=== PATIENT | female | born 1945 | race Caucasian/White ===

== ENCOUNTER 2017-08-22 09:55 | Emergency (ER) | payer MEDICARE, BC ==
[2017-08-22 10:12] VITALS: BP 152/110
--- NOTE | 2017-08-22 10:53 | EDM.PDOC ---
ED HPI GENERAL MEDICAL PROBLEM - General Chief Complaint: Genitourinary Problem Stated Complaint: UTI?? Time Seen by Provider: 08/22/17 10:30 Source of Information: Reports: Patient History Limitations: Reports: No Limitations - History of Present Illness INITIAL COMMENTS - FREE TEXT/NARRATIVE: 72-year-old female who has been treated for a UTI twice in the last month, recently finished nitrofurantoin 3 days ago and was asymptomatic until this morning when she woke up she was having dysuria. No fevers or chills, no back pain. Onset: Other (Symptoms developed overnight) Severity: Mild Worsens with: Reports: Other (Symptoms occur with urination) - Related Data Allergies Allergy/AdvReac Type Severity Reaction Status Date / Time No Known Allergies Allergy Verified 08/22/17 10:22 Home Meds: Home Meds Lisinopril 40 mg PO DAILY 08/22/17 [History] Metoprolol Succinate [Toprol XL] 50 mg PO DAILY 08/22/17 [History] Warfarin [Coumadin] 1 mg PO ASDIRECTED 08/22/17 [History] amLODIPine [Norvasc] 2.5 mg PO DAILY 08/22/17 [History] atorvaSTATin [Lipitor] 20 mg PO BEDTIME 08/22/17 [History] Past Medical History HEENT History: Reports: Impaired Vision Cardiovascular History: Reports: Afib, High Cholesterol - Past Surgical History GI Surgical History: Reports: Hernia, Abdominal Female Surgical History: Reports: Section Social & Family History - Tobacco Use Smoking Status *Q: Never Smoker - Recreational Drug Use Recreational Drug Use: No ED ROS GENERAL - Review of Systems Review Of Systems: See Below Constitutional: Denies: Fever, Chills Respiratory: Denies: Shortness of Breath Cardiovascular: Denies: Chest Pain GI/Abdominal: Denies: Abdominal Pain, Nausea, Vomiting : Reports: Dysuria, Frequency Musculoskeletal: Denies: Back Pain Skin: Reports: No Symptoms ED EXAM, RENAL/ - Physical Exam Exam: See Below Exam Limited By: No Limitations General Appearance: Alert, No Apparent Distress Respiratory/Chest: No Respiratory Distress GI/Abdominal: Non-Tender Back Exam: No: CVA Tenderness (R), CVA Tenderness (L) Course - Vital Signs Last Recorded V/S: Last Vital Signs Temp 98.2 F 08/22/17 10:10 Pulse 62 08/22/17 10:10 Resp 18 08/22/17 10:10 BP 152/110 H 08/22/17 10:10 Pulse Ox 97 08/22/17 10:10 - Orders/Labs/Meds Labs: Laboratory Tests 08/22/17 Range/Units 10:54 Urine Color Yellow Urine Appearance Cloudy Urine pH 5.0 (4.5-8.0) Ur Specific [place] 1.015 (1.008-1.030) Urine Protein Trace (NEGATIVE) mg/dL Urine Glucose (UA) Normal (NEGATIVE) mg/dL Urine Ketones Negative (NEGATIVE) mg/dL Urine Occult Blood Large (NEGATIVE) Urine Nitrite Negative (NEGATIVE) Urine Bilirubin Negative (NEGATIVE) Urine Urobilinogen Normal (NORMAL) mg/dL Ur Leukocyte Esterase Large (NEGATIVE) Urine RBC 75-100 H (0-5) Urine WBC Semi-packed H (0-5) Ur Epithelial Cells Moderate Amorphous Sediment Not seen Urine Bacteria Many Urine Mucus Not seen - Re-Assessments/Exams Free Text/Narrative Re-Assessment/Exam: 08/22/17 11:35 Urine shows many bacteria, 75-100 WBCs and RBCs. A culture was initiated and we will try Cipro 500 twice daily since she's recently been on Bactrim and Macrodantin. Culture will be available in 2 days. 08/24/17 16:38 Patient was called 2 days after being seen and informed that her culture was mixed yuliana. She said she was feeling markedly better and she was rechecking later this week with her primary care. I recommended if symptoms recur a mini catheter UA would be more appropriate. Departure - Departure Time of Disposition: 11:41 Disposition: Home, Self-Care 01 Condition: Good Clinical Impression: UTI, Urinary tract infectious disease - Discharge Information Instructions: Urinary Tract Infection, Adult, [id number] Referrals: PCP,None [Primary Care Provider] - Forms: ED Department Discharge Care Plan Goals: Take antibiotic twice a day for at least 5 days, we will inform you of culture results on Wednesday. You can return sooner if worsening such as fever or vomiting.
== END 2017-08-22 11:44 | disposition home or self-care (01) ==
LOC: JP.ED 09:55
DX: N39.0 Urinary tract infection, site not specified (principal); I48.91 Unspecified atrial fibrillation; E78.00 Pure hypercholesterolemia, unspecified; Z98.890 Other specified postprocedural states; Z79.01 Long term (current) use of anticoagulants; Z79.899 Other long term (current) drug therapy
CPT/HCPCS: 81001; 87086; 99284